=== PATIENT | male | born 1960 | race African-American/Black ===

== ENCOUNTER 2021-12-22 12:43 | Emergency (ER) | payer MEDICAID, OTHER ==
[~2021-12-22] VITALS: Ht 167.6 cm; Wt 82.0 kg
[~2021-12-22 12:43] MED LIST: AMOX125S12 PO; CEPH500C2 PO; CITA20TA19 PO; DIVA-75 PO; GABA-532 PO; HYDR-3992 PO; RISP2TAB85 PO
[2021-12-22] MEDS ORDERED: CEPH500T MT (13:03)
[2021-12-22] MEDS ORDERED: MUPI1OIN4 TP (13:03)
[2021-12-22] MEDS ORDERED: LIDOCAINE HCL 1% 10 MG/ML 10ML VIAL IJ ONE (13:15)
[2021-12-22] MEDS ORDERED: LIDOCAINE HCL/PF 1% 10 MG/ML 5ML VIAL INFIL ONE (13:15)
[2021-12-22] MEDS ORDERED: TETANUS, DIPHTHERIA, PERTUSSIS VAC/PF 0.5ML (>10YR OLD) IM ONE (13:15)
[2021-12-22] MEDS ORDERED: BACITRACIN ZINC OINT UDPKT TOP ONE (13:15)
[2021-12-22] MEDS: LIDOCAINE HCL 1% 20ML VIAL (Pyxis) INJ INFIL NR ×2 (14:09→14:10)
[2021-12-22 14:58] VITALS: BP 108/75
== END 2021-12-22 15:00 | disposition home or self-care (01) ==
LOC: ER 13:41
DX: L73.8 Other specified follicular disorders (principal); K13.0 Diseases of lips; F20.9 Schizophrenia, unspecified
CPT/HCPCS: 10060; 90471; 90715; 99283; J3490

== ENCOUNTER 2025-01-20 09:42 | Emergency (ER) | payer MEDICAID, OTHER ==
[~2025-01-20] VITALS: Ht 177.8 cm; Wt 92.4 kg
[~2025-01-20 09:42] MED LIST changes: +CEPH500T MT; +GABA-1180 PO; -GABA-532 PO; +MUPI1OIN4 TP; +RISP-29 PO; -RISP2TAB85 PO
[2025-01-20 09:48] VITALS: O2SAT 99
[2025-01-20] MEDS ORDERED: [UNRECOGNIZED DRUG - CODE] TP (10:18)
[2025-01-20 10:38] VITALS: BP 158/70; PULSE 61; RESP 18; TEMP 36.9; O2SAT 100
== END 2025-01-20 10:41 | disposition home or self-care (01) ==
LOC: ER 09:42
DX: L70.0 Acne vulgaris (principal); F20.9 Schizophrenia, unspecified; Z88.0 Allergy status to penicillin; Z79.899 Other long term (current) drug therapy
CPT/HCPCS: 99282